=== PATIENT | male | born 1975 | race Caucasian/White ===

== ENCOUNTER 2018-07-25 05:35 | Emergency (ER) | payer BC ==
[2018-07-25] MEDS: KETOROLAC 30 MG INJ IM (06:20)
== END 2018-07-25 07:18 | disposition home or self-care (01) ==
LOC: FTE 05:35
DX: M54.2 Cervicalgia (principal); F17.210 Nicotine dependence, cigarettes, uncomplicated
CPT/HCPCS: 96372; 99284-25